=== PATIENT | male | born 1970 | race Two or more races ===

== ENCOUNTER 2022-09-19 14:29 | Emergency (ER) | payer OTHER ==
[~2022-09-19] VITALS: Ht 180.3 cm; Wt 137.2 kg
[2022-09-19 14:35] VITALS: BP 136/88
[2022-09-19] MEDS ORDERED: LIDOCAINE 1% HCL (LOCAL ANESTH.) INJ 20ML MDV ONE (16:35)
[2022-09-19] MEDS ORDERED: LIDOCAINE 1% HCL (LOCAL ANESTH.) INJ 20ML MDV IJ ONE (16:45)
[2022-09-19] MEDS ORDERED: TETANUS-DIPTH-ACEL PERTUSSIS 0.5ML SYR Tdap IM ONE (17:00)
[2022-09-19] MEDS ORDERED: cefTRIAXone SOD 1,000 MG VL IM ONE (17:00)
[2022-09-19] MEDS ORDERED: CEPH-510 PO (17:34)
[2022-09-19] MEDS ORDERED: IBUP800T27 PO (17:34)
== END 2022-09-19 17:37 | disposition home or self-care (01) ==
LOC: ER 14:29
DX: S61.412A Laceration without foreign body of left hand, initial encounter (principal); W23.0XXA Caught, crushed, jammed, or pinched between moving objects, initial encounter; Y93.89 Activity, other specified; Y92.89 Other specified places as the place of occurrence of the external cause; Y99.8 Other external cause status
CPT/HCPCS: 12004; 73130; 90471; 90715; 96372; 99284; J0696; J2001